=== PATIENT | male | born 1935 | race Caucasian/White ===

== ENCOUNTER 2018-11-04 07:52 | Day surgery (SDC) | payer MEDICARE, OTHER ==
--- NOTE | 2018-10-30 14:34 | Rehab Joint Replacement Pre-Op ---
Rehab Joint Replacement Pre-Op - Pre-Op Visit Reviewed Items Scheduled for Post Op Visit: No Rudy Hose/Garment Measurement TKR - Knee High: Yes (Ankle circumference 9 1/2", calf 16 1/2", leg length 22" ( knee crease to heel). Pt measures for large knee high compression garment.) Rudy Hose/Garment Measure THR - Thigh High: N/A Exercise Reviewed: Yes Stair Climbing: Yes Cane/Walker/Crutch Training: Yes Vend Equipment - Cane or Walker and OT Kit: N/A List of Venders in the Area: Yes Shower Chair Transfers: Yes Car Transfers: Yes Bed Transfers: Yes Medical History Forms Issued: N/A Functional Scale Forms Issued: N/A Pre-Operative Intake Form - Scheduled Procedure Type of Surgical Procedure: Total Knee - Left - Patient Living Situation Current Living Situation: Spouse/Significant Other Current Housing Situation: Other (Pt. lives in a quad level home.) Will patient be using both levels immediately after surgery: Yes (Pt will need to use at least 2 levels after surgery with few stairs each.) - Entrance Detail Current Housing Entrance: Steps Number of Steps: 1 - Bathroom Detail Bathroom Setup: Tub/Shower Combination (Pt has hand held shower.) Toilet Setup: Standard Height Toilet, Grab Bars Not Present - Post-Op Home Assistance Pt has meals following surgery?: Yes Pt has transportation following surgery?: Yes - Equipment Detail Currently Own/Have Access To: Shower Bench (Pt has a shower bench and is getting a walker and cane prior to surgery.) - Work Status Current Work Status: Retired - Additional Detail Patient Returning Home In: Car Patient is scheduled for the following: Outpatient PT (Pt is to start Outpatient PT at a clinic near his home after surgery.)
[~2018-11-04 07:52] MED LIST: CEFAZOLIN 2 Gram 2 GM/50 ML BAG IVPB ONE; FAMOTIDINE 20MG TABLET PO ONE; MECLIZINE 25 MG TABLET PO ONE; METOCLOPRAMIDE 10 MG TABLET PO ONE
[2018-11-04] MEDS ORDERED: 0.9 % SODIUM CHLORIDE 10 ML VIAL IVP ONE (07:53)
[2018-11-04] MEDS ORDERED: MIDAZOLAM HCL 2MG/2ML VIAL IV ONE (07:53)
[2018-11-04] MEDS ORDERED: ROPIVACAINE HCL (NAROPIN) /PF 5MG/ML 20ML VIAL IV ONE (07:53)
[2018-11-04] MEDS ORDERED: TRANEXAMIC ACID 1,000 MG/10 ML ML IV ONE (07:53)
[2018-11-04] MEDS ORDERED: PROPOFOL 10 MG/ML VIAL IV ONE (07:53)
[2018-11-04] MEDS ORDERED: DEXAMETHASONE 4 MG/ML 1ML VIAL IVP ONE (07:53)
[2018-11-04] MEDS ORDERED: LIDOCAINE 2% MDV (20MG/ML) 20ML VIAL IV ONE (07:53)
[2018-11-04] MEDS ORDERED: 0.9 % SODIUM CHLORIDE 1000ML 1,000 ML IV ONE (09:00)
[2018-11-04] MEDS ORDERED: AL HYDROX/MAG HYDROX 30ML UD PO PRN (13:00)
[2018-11-04] MEDS ORDERED: TRAMADOL HCL 50 MG TABLET PO PRN ×2 (13:00)
[2018-11-04] MEDS ORDERED: MAGNESIUM HYDROXIDE 30 ML UDC PO PRN (13:00)
[2018-11-04] MEDS ORDERED: METOCLOPRAMIDE HCL 10 MG/2 ML VIAL IVP PRN (13:00)
[2018-11-04] MEDS ORDERED: ACETAMINOPHEN 325 MG TAB PO PRN (13:00)
[2018-11-04] MEDS ORDERED: NALOXONE 0.4 MG/1 ML VIAL IVP PRN (13:00)
[2018-11-04] MEDS ORDERED: ONDANSETRON HCL IV 4 MG/2 ML VIAL IVP PRN (13:00)
[2018-11-04] MEDS ORDERED: SENNOSIDES/DOCUSATE SODIUM UD CAPSULE PO PRN (13:00)
[2018-11-04] MEDS ORDERED: DIPHENHYDRAMINE HCL 25 MG CAPSULE PO PRN (13:00)
[2018-11-04] MEDS ORDERED: HYDROMORPHONE HCL 2 MG/ML VIAL IV PRN (13:00)
[2018-11-04] MEDS ORDERED: ZOLPIDEM TARTRATE 5 MG TABLET PO PRN (13:00)
[2018-11-04] MEDS ORDERED: OXYCODONE HCL/APAP 5MG/325MG TABLET PO PRN ×2 (13:00)
[2018-11-04] MEDS ORDERED: TRANEXAMIC ACID 1,000 MG in 0.9 % SODIUM CHLORIDE 100ML 100 ML IVPB ONE (14:00)
[2018-11-04] MEDS: RINGERS SOLUTION,LACTATED 1,000 ML IV SCH (15:05)
[2018-11-04] MEDS: HYDROCODONE/APAP 5/325MG TABLET PO PRN ×3 (15:07→21:58)
--- NOTE | 2018-11-04 17:32 | Rehab Evaluation ---
Patient Information - Patient Information Diagnosis: L knee OA Ordered Treatment: PT Evaluate and Treat Status: Initial Evaluation Surgery: Yes (L TKA) Date of Surgery: 11/04/18 Past Medical/Surgical Hx: PAST MEDICAL/SURGICAL HISTORY Past Surgical History BILAT CATS C SCOPES X'S 4 PMH - Respiratory Hx Respiratory Disorders Yes Hx Chronic Obstructive Yes: MILD NO INHALER REQUIRED Pulmonary Disease (COPD) Hx Sleep Apnea Yes Hx of CPAP Yes Hx of SOB Yes: WITH HARD WORK PMH - Cardiovascular Hx Cardiovascular Disorders Yes Hx Hypertension Yes: ON MEDS WITH FAIR CONTROL RUNS UPPER LIMITS OF NORMAL Exercise Tolerance Good PMH - Neuro Hx Neurological Disorders Yes Hx Cerebrovascular Accident Yes: "SILENT STROKES" SEEN ON MRI Hx Neuropathy Yes: BILAT LE PMH - GI Hx Gastrointestinal Disorders Yes Hx Weight Loss/Weight Gain Yes: LOSS 25 LBS OVER LAST FEW MONTHS DIET AND EXERCISE PMH - Hx Genitourinary Disorders Yes Hx Bladder Problem Yes: URINE FREQUENCY NOCTURIA Hx Prostate Problems Yes: HX OF CANCER TX'D WITH RADIATION PMH - Endocrine Hx Endocrine Disorders Yes Hx Diabetes Yes: DX'D 3 YRS AGO Hx of NIDDM Yes: ON METFORMIN Comment: PT DOESNT CHECK BLOOD SUGARS PMH - Musculoskeletal Hx Musculoskeletal Disorders Yes Hx Arthritis Yes: LEFT KNEE AND RIGHT THUMB PMH - Psych Hx Psychiatric Problems Yes Hx Depression Yes: SADD CONTROLLED WITH MEDS PMH - Hematology/Oncology Hx Hematology/Oncology Yes Disorders Hx Cancer Yes: PROSTATE Hx Radiation Therapy Yes Premorbid Status: Detail (The patient was independent with all mobility.) Social History: Detail (The paient lives with spouse in a quad level home with one step and a landing and one step into house without railings. The patient will be staying on first level with 7 or 8 steps and one railing. The bathroom on the first level has an elevated toilet with grab bars and a tub/shower combination, shower bence and no grab bars. The patient has a walker with wheels ,4 wheeled walker and standard cane.) Precautions: [place], Fall, Other (WBAT on the L) - Time With Patient Total Time Spent With Patient (Min): 30 Treatment Procedures: Detail (Initial Evaluation, mobility) Subjective Information - Subjective Information Per Patient (The patient had minimal complaints of knee pain. The patient complained of lightheadedness with standing.) Objective Data - Mental Status Patient Orientation: Oriented x3 - Visual Perception Appears within normal limits for therapeutic activities - ROM Not within normal limits (The patent's L knee AROM is limited s/p surgery. All other AROM is WNL.) - Strength/Tone Not within normal limits (The patient's L LE strength was not tested but is functional ie: patient was able to lift LE out of bed. The patient's R LE strength was WFL.) - Bed Mobility Independent (The patient was independent with supine to and from sit transfer.) - Transfers Independent (The patient was independent with sit to and from stand transfer.) - Balance Balance Sitting: Good Balance Standing: Good - Gait Detail (The patient stood to walker but did not ambulate due to lightheadedness. ) Therapy Assessment - Therapy Assessment Detail (The patient was independent with transfers and bed mobility. The patient did not ambulate due to lightheadedness. Feel the patient will progress well once symptoms of lightheadedness subside.) Problem List - Problem List Physical Therapy Problem List: Detail (Decreased L knee AROM and L LE strength as to be expected following surgery.) Goals - Goals Physical Therapy Goals: 1) The patient will be independent with ambulation WBAT on L LE community distances. 2) The patient will be ambulate on stairs with supervision for safety using proper technique. 3)The patient will be independent with TKA HEP. Prognosis - Prognosis Good Plan - Plan Physical Therapy Plan: PT 1-2 sessions for gait training on levels and stairs and instruction in TKA HEP.
[2018-11-04] MEDS: CEFAZOLIN 1G VIAL IVP SCH (18:43)
[2018-11-04] MEDS: ASPIRIN 325 MG TAB ENTERIC-COATED PO SCH (21:58)
[2018-11-04] MEDS: BUPROPION 150 MG PO SCH (22:00)
[2018-11-04] MEDS: PATIENT OWN MED: TAMSULOSIN 0.4 MG PO SCH (22:00)
[2018-11-05] MEDS: HYDROCODONE/APAP 5/325MG TABLET PO PRN ×2 (02:53→08:17)
[2018-11-05] MEDS: CEFAZOLIN 1G VIAL IVP SCH ×2 (03:03→09:55)
[2018-11-05] MEDS ORDERED: METFORMIN 500 MG TABLET PO SCH (08:00)
[2018-11-05] MEDS: RINGERS SOLUTION,LACTATED 1,000 ML IV SCH (08:16)
--- NOTE | 2018-11-05 08:41 | Operative Note ---
DATE OF SURGERY: 11/04/2018 SURGEON: Serge Jama DO PREOPERATIVE DIAGNOSIS: Osteoarthritis of the left knee. POSTOPERATIVE DIAGNOSIS: Osteoarthritis of the left knee. OPERATION: Left total knee arthroplasty. DESCRIPTION OF PROCEDURE: This 83-year-old male was taken to the operating room and placed in the supine position on the operating room table after spinal anesthesia was induced. The left lower extremity was elevated. It was prepped with Hibiclens and draped in the usual sterile fashion. It was exsanguinated and the tourniquet inflated to 300 mmHg. All scrub personnel wore personal isolation suits. An anterior longitudinal midline incision was made followed by a medial parapatellar arthrotomy incision. An intracondylar drill hole was made for the intramedullary alignment mabel, and a 6-degree valgus 10 mm cut was made in the distal femur. The wafer of bone was removed. Sizing jig was affixed and size 75 was seen to be the appropriate size. The 4-in-1 cutting block was then affixed, and the appropriate cuts were made. We directed our attention to the proximal tibia, and an extramedullary alignment guide was used to cut the proximal tibia referencing a 10 mm cut off the lateral tibial plateau. The appropriate cut was made. We found that this did not get below the subchondral bone. Therefore, an additional 2 mm was taken. The remnants of the menisci and osteophytes were removed from the posterior aspect of the joint. The tibia was sized to a size 83, and the stem punch was used. The patella was measured, cut, and restored to anatomic height with a 37 x 8.6 mm patella. The trial components were inserted with an 11 mm bearing seen to be the appropriate size with excellent stability throughout the normal range of motion. The joint was then copiously irrigated with lactated Ringer's solution after all trial components had been removed. All the bony surfaces were dried. Excess cement was removed after the insertion of each component. We initially placed the tibial baseplate followed by the insertion of the 11 mm anterior stabilized bearing, the 75 femur was affixed, and finally the patella was applied. Once the cement had hardened, the knee was again taken through range of motion with excellent stability being identified. The wound was again irrigated with lactated Ringer's solution and a drain placed through a separate stab incision. The arthrotomy incision closed with a #2 Vicryl reinforced with #1 TiCron. The subcutaneous tissue closed with 2-0 Vicryl and the skin was stapled. Sterile dressings applied. The patient was taken to the recovery room in satisfactory condition. GROSS PATHOLOGY: This patient demonstrated severe full-thickness medial compartment articular cartilage loss with bone loss on the medial tibial plateau. 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 Moderate degenerative changes of the lateral compartment. Final components inserted were a [employer] V[employer]ard size 75 cruciate retaining femur, an 83 tibial baseplate, an 11 mm anterior stabilized tibial bearing, and a 37 x 8.6 mm patella was used. CC: Han Win MD MTDD
[2018-11-05] MEDS: PATIENT OWN MED: TAMSULOSIN 0.4 MG PO SCH (09:55)
[2018-11-05] MEDS: BUPROPION 150 MG PO SCH (09:55)
[2018-11-05] MEDS: ASPIRIN 325 MG TAB ENTERIC-COATED PO SCH (09:56)
[2018-11-05] MEDS ORDERED: LOSARTAN POTASSIUM 25 MG TABLET PO SCH (10:00)
--- NOTE | 2018-11-05 12:15 | Physical Therapy Tx Note ---
Physical Therapy Tx Note - Treatment Note Tolerated: Good Total Time Spent With Patient: 20 Physical Therapy Tx Note: Detail (The patient was sitting on the edge of bed when PT arrived. The patient ambulated with front wheeled walker a distance of 108 feet x 1 with WBAT on the L LE. The patient ambulated on a flight of 3 and 7 stairs with use of railing and one cane with supervision of 1 for safety. The patient completed TKA exercises including : heel slides supine, gluteal sets , quad sets, ankle pumps, hamstring sets and SLR. The patient has met all inpatient goals and is discharged from inpatient PT.) Physical Therapy Problem List: Detail (Decreased L knee AROM and L LE strength as to be expected following surgery.) Physical Therapy Goals: 1) The patient will be independent with ambulation WBAT on L LE community distances. (Goal Met). 2) The patient will be ambulate on stairs with supervision for safety using proper technique. (Goal Met). 3)The patient will be independent with TKA HEP. (Goal Met) Physical Therapy Plan: The patient has met all inpatient PT goals and is to receive Outpatient PT.
--- NOTE | 2018-11-05 12:49 | Rehab Evaluation ---
Patient Information - Patient Information Diagnosis: L knee OA Ordered Treatment: OT Evaluate and Treat Status: Initial Evaluation Surgery: Yes (L TKA) Date of Surgery: 11/04/18 Past Medical/Surgical Hx: PAST MEDICAL/SURGICAL HISTORY Past Surgical History BILAT CATS C SCOPES X'S 4 PMH - Respiratory Hx Respiratory Disorders Yes Hx Chronic Obstructive Yes: MILD NO INHALER REQUIRED Pulmonary Disease (COPD) Hx Sleep Apnea Yes Hx of CPAP Yes Hx of SOB Yes: WITH HARD WORK PMH - Cardiovascular Hx Cardiovascular Disorders Yes Hx Hypertension Yes: ON MEDS WITH FAIR CONTROL RUNS UPPER LIMITS OF NORMAL Exercise Tolerance Good PMH - Neuro Hx Neurological Disorders Yes Hx Cerebrovascular Accident Yes: "SILENT STROKES" SEEN ON MRI Hx Neuropathy Yes: BILAT LE PMH - GI Hx Gastrointestinal Disorders Yes Hx Weight Loss/Weight Gain Yes: LOSS 25 LBS OVER LAST FEW MONTHS DIET AND EXERCISE PMH - Hx Genitourinary Disorders Yes Hx Bladder Problem Yes: URINE FREQUENCY NOCTURIA Hx Prostate Problems Yes: HX OF CANCER TX'D WITH RADIATION PMH - Endocrine Hx Endocrine Disorders Yes Hx Diabetes Yes: DX'D 3 YRS AGO Hx of NIDDM Yes: ON METFORMIN Comment: PT DOESNT CHECK BLOOD SUGARS PMH - Musculoskeletal Hx Musculoskeletal Disorders Yes Hx Arthritis Yes: LEFT KNEE AND RIGHT THUMB PMH - Psych Hx Psychiatric Problems Yes Hx Depression Yes: SADD CONTROLLED WITH MEDS PMH - Hematology/Oncology Hx Hematology/Oncology Yes Disorders Hx Cancer Yes: PROSTATE Hx Radiation Therapy Yes Premorbid Status: Detail (The patient was independent with all mobility. He and shared meal prep and laundry tasks.) Social History: Detail (The patient lives with spouse in a quad level home with one step and a landing and one step into house without railings. The patient will be staying on first level with 7 or 8 steps and one railing. The bathroom on the first level has an elevated toilet, no grab bars and a tub/shower combination, shower bench and no grab bars. The patient has a walker with wheels , 4 wheeled walker and standard cane.) Precautions: [place], Fall, Other (WBAT on the L) - Time With Patient Total Time Spent With Patient (Min): 45 Treatment Procedures: Detail (OT eval low complexity) Subjective Information - Subjective Information Per Patient Objective Data - Pain Pain Present: No (Pt reports no pain) - Mental Status Patient Orientation: Oriented x3 - Visual Perception Appears within normal limits for therapeutic activities - ROM Within normal limits (Prem UE AROM WNL) - Strength/Tone Within normal limits (Prem UE strength WNL) - Coordination Appears within normal limits for therapeutic activities - Bed Mobility Independent (Ind with supine to sit and sit to supine.) - Transfers Independent (Ind with sit to stand from EOB) - Balance Balance Sitting: Good Balance Standing: Good - Sensation Intact - ADL's/IADL's Detail (Pt educated and able to demonstrate learning of modified LE dressing techniques including doffing brief and slipper socks and donning underwear, pants and tennis shoes. Reviewed kitchen and shower safety and modifications, pt verbalized understanding.) Therapy Assessment - Therapy Assessment Detail (Pt is Ind with modified LE dressing techniques.) Problem List - Problem List Physical Therapy Problem List: Detail (Decreased L knee AROM and L LE strength as to be expected following surgery.) Occupational Therapy Problem List: Detail (No current IP OT problems identified. ) Goals - Goals Physical Therapy Goals: 1) The patient will be independent with ambulation WBAT on L LE community distances. (Goal Met). 2) The patient will be ambulate on stairs with supervision for safety using proper technique. (Goal Met). 3)The patient will be independent with TKA HEP. (Goal Met) Occupational Therapy Goals: No current IP OT goals identified. Prognosis - Prognosis Good Plan - Plan Physical Therapy Plan: The patient has met all inpatient PT goals and is to receive Outpatient PT. Occupational Therapy Plan: No further IP OT recommended. Thank you for this referral.
--- NOTE | 2018-11-06 09:11 | Discharge Summary ---
DATE OF ADMISSION: 11/04/2018 DATE OF DISCHARGE: 11/05/2018 SURGEON: Serge Jama DO ADMITTING DIAGNOSIS: Osteoarthritis of the left knee. DISCHARGE DIAGNOSIS: Osteoarthritis of the left knee. OPERATIVE PROCEDURE: Elective left total knee arthroplasty. HISTORY OF PRESENT ILLNESS: This 83-year-old male was admitted to the hospital for elective total knee arthroplasty and tolerated the operative procedure well and progressed satisfactorily with PT and was cleared by physical therapy. He was not showing any signs of complication or DVT during the course of his hospitalization. He will be discharged with outpatient physical therapy and he will take aspirin 325 mg daily. He will take [place] 5/325 mg #40 1 every 4 hours as necessary for pain. He will wear his JOSE hose during the day and remove them at night. Routine wound care instructions were given. He will follow up in 2 weeks. Should he have any problems prior to being seen he was instructed to call my office. ABBY
== END 2018-11-05 13:10 | disposition home or self-care (01) ==
LOC: SUR 07:52 → MEDSURG 12:10 → SUR 11-05 13:10
PROVIDERS: ATTEND Orthopaedic Surgery
DX: M17.12 Unilateral primary osteoarthritis, left knee (principal); I10 Essential (primary) hypertension; E11.9 Type 2 diabetes mellitus without complications; N40.0 Benign prostatic hyperplasia without lower urinary tract symptoms; G47.33 Obstructive sleep apnea (adult) (pediatric)
CPT/HCPCS: 27447; 01402; 64447; 64450; 94760; 76942; J0690; J3490; J2795; 97530; J7030; J7120